=== PATIENT | male | born 1985 | race Caucasian/White ===

== ENCOUNTER 2018-02-12 17:51 | Emergency (ER) | payer BC, MEDICAID ==
[2018-02-12] MEDS ORDERED: diphenhydrAMINE 50 MG/ML SDV IM ONE (18:02)
[2018-02-12] MEDS ORDERED: methylPREDNISolone Sodium Succinate 125 MG/2 ML SDV IM ONE (18:02)
--- NOTE | 2018-02-12 18:09 | EDM.PDOC ---
ED HPI GENERAL MEDICAL PROBLEM - General Chief Complaint: Allergic Reaction Stated Complaint: ALLERGIC REACTION Time Seen by Provider: 02/12/18 18:03 Source of Information: Reports: Patient History Limitations: Reports: No Limitations - History of Present Illness INITIAL COMMENTS - FREE TEXT/NARRATIVE: Pt took Amoxicillin 500mg 1 cap today for ?strep. States that his family was diagnosed and treated this week so his got him a prescription as well. He has taken it once as a child years ago. Today took it on an empty stomach. Noted redness and warmth within 20 minutes of taking the pill. Now with swelling to throat and lip. Was noting some heart racing but feels like it is improving now. 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) Chest Pain Score (Numeric/FACES): 2 - Related Data Allergies Allergy/AdvReac Type Severity Reaction Status Date / Time No Known Allergies Allergy Verified 02/12/18 17:57 Home Meds: Home Meds NK [No Known Home Meds] 02/02/14 [History] Past Medical History - Past Health History Medical/Surgical History: Denies Medical/Surgical History Social & Family History - Tobacco Use Smoking Status *Q: Current Every Day Smoker Years of Tobacco use: 10 Packs/Tins Daily: 0.5 - Caffeine Use Caffeine Use: Reports: Coffee - Recreational Drug Use Recreational Drug Use: No ED ROS ALLERGIC REACTION - Review of Systems Review Of Systems: See Below Constitutional: Reports: No Symptoms HEENT: Reports: Throat Swelling Respiratory: Reports: No Symptoms Cardiovascular: Reports: Palpitations Endocrine: Reports: No Symptoms GI/Abdominal: Reports: No Symptoms : Reports: No Symptoms Skin: Reports: Rash (redness to chest, back, arms, face, neck) Neurological: Reports: No Symptoms Psychiatric: Reports: Anxiety Hematologic/Lymphatic: Reports: No Symptoms ED EXAM GENERAL NO PERIP PULSE - Physical Exam Exam: See Below Exam Limited By: No Limitations General Appearance: Mild Distress Ears: Normal External Exam, Normal Canal, Hearing Grossly Normal, Normal TMs Nose: Normal Inspection, Normal Mucosa, No Blood Throat/Mouth: Normal Inspection, Normal Lips, Normal Teeth, Normal Gums, Normal Oropharynx, Normal Voice, No Airway Compromise Head: Facial Swelling (lower lips) Neck: Normal Inspection, Supple, Non-Tender, Full Range of Motion Respiratory/Chest: No Respiratory Distress, Lungs Clear, Normal Breath Sounds, No Accessory Muscle Use, Chest Non-Tender Cardiovascular: Normal Peripheral Pulses, Regular Rate, Rhythm, No Edema, No Gallop, No JVD, No Murmur, No Rub GI/Abdominal: Normal Bowel Sounds, Soft, Non-Tender, No Organomegaly, No Distention, No Abnormal Bruit, No Mass Extremities: Normal Inspection, Normal Range of Motion, Non-Tender, Normal Capillary Refill, No Pedal Edema Neurological: Alert, Oriented, CN II-XII Intact, Normal Cognition, Normal Gait, Normal Reflexes, No Motor/Sensory Deficits Psychiatric: Normal Affect, Normal Mood Skin Exam: Erythema (to arms, legs, neck, chest and back, no hives) Course - Vital Signs Last Recorded V/S: Last Vital Signs Temp 97.5 F 02/12/18 17:54 Pulse 70 02/12/18 18:41 Resp 16 02/12/18 18:41 BP 121/84 02/12/18 18:41 Pulse Ox 98 02/12/18 18:41 - Orders/Labs/Meds Orders: Active Orders 24 hr Category Date Time Status CULTURE STREP A CONFIRMATION [] Stat Lab 02/12/18 18:02 Results STREP SCRN A RAPID W CULT CONF [] Stat Lab 02/12/18 18:02 Results Meds: Medications Discontinued Medications Generic Name Dose Route Start Last Admin Trade Name Agueda PRN Reason Stop Dose Admin Diphenhydramine HCl 25 mg 02/12/18 18:02 02/12/18 18:10 Benadryl IM 02/12/18 18:03 25 mg ONETIME ONE Administration Methylprednisolone Sodium Succinate 125 mg 02/12/18 18:02 02/12/18 18:10 Solu-Medrol IM 02/12/18 18:03 125 mg ONETIME ONE Administration Departure - Departure Time of Disposition: 18:59 Disposition: Home, Self-Care 01 Condition: Good Clinical Impression: Adverse drug reaction Qualifiers: Encounter type: initial encounter Qualified Code(s): T50.905A - Adverse effect of unspecified drugs, medicaments and biological substances, initial encounter - Discharge Information Referrals: PCP,None [Primary Care Provider] - Forms: ED Department Discharge Additional Instructions: To add Amoxicillin to allergy list. Benadryl 25mg IM given. Solumedrol 125mg IM given. Pt responds well. Rapid strep obtained. Is negative. Culture pending. No further antibiotic given. Pt may take Zyrtec 10mg po daily for the next week. Increase fluids this evening. Followup if worsening symptoms. - Problem List & Annotations (1) Adverse drug reaction SNOMED Code(s): 62777651 Code(s): T50.905A - ADVERSE EFFECT OF UNSP DRUG/MEDS/BIOL SUBST, INIT Status: Acute Priority: Medium Current Visit: Yes Qualifiers: Encounter type: initial encounter Qualified Code(s): T50.905A - Adverse effect of unspecified drugs, medicaments and biological substances, initial encounter - My Orders Last 24 Hours: My Active Orders 02/12/18 18:02 CULTURE STREP A CONFIRMATION [RM] Stat STREP SCRN A RAPID W CULT CONF [RM] Stat - Assessment/Plan Last 24 Hours: My Active Orders 02/12/18 18:02 CULTURE STREP A CONFIRMATION [RM] Stat STREP SCRN A RAPID W CULT CONF [RM] Stat
== END 2018-02-12 19:02 | disposition home or self-care (01) ==
LOC: JP.ED 17:51
DX: R22.1 Localized swelling, mass and lump, neck (principal); R22.0 Localized swelling, mass and lump, head; T36.0X5A Adverse effect of penicillins, initial encounter; F17.210 Nicotine dependence, cigarettes, uncomplicated
CPT/HCPCS: 87081; 87430; 96372; 99284; J1200; J2930